=== PATIENT | female | born 1970 | race Caucasian/White ===

== ENCOUNTER 2019-01-03 03:16 | Emergency (ER) | payer MEDICARE ==
[~2019-01-03] VITALS: Ht 165.1 cm; Wt 55.0 kg
[2019-01-03 04:15] VITALS: BP 120/60
[2019-01-03] MEDS ORDERED: VANCOMYCIN 1 G PREMIX 200 ML IV SCH (04:30)
== END 2019-01-03 04:55 | disposition left against medical advice (07) ==
LOC: ER 04:31
DX: L03.116 Cellulitis of left lower limb (principal); L03.115 Cellulitis of right lower limb
CPT/HCPCS: 99282; 99283